=== PATIENT | male | born 1965 | race Caucasian/White ===

== ENCOUNTER 2024-08-05 10:17 | Outpatient (CLI) | payer MEDICAID ==
--- NOTE | 2024-08-05 16:14 | RADIOLOGY REPORT ---
EXAM: MR MRI UPPER EXTREMITY RIGHT; DATE: 08/05/2024 10:37 AM HISTORY: UNSPECIFIED OSTEOARTHRITIS, UNSPECIFIED SITE COMPARISON: None TECHNIQUE: Multiplanar, multisequence MRI was performed. FINDINGS: Extensor tendons: Mild increased signal in the extensor carpi ulnaris tendon. There is minimal fluid distention of the 2nd and 4th tendon sheaths. Flexor tendons: Unremarkable. Intercarpal ligaments: Thickening and signal alteration of volar and dorsal scapholunate ligaments re flecting chronic partial tear/chronic sprain. Triangular fibrocartilage: Grossly unremarkable. Carpal tunnel: Unremarkable. Median nerve is normal. Guyon's canal: Unremarkable. Ulnar nerve is normal. Ulnar variance: Neutral. Bones/joints: Several subcentimeter intraosseous cysts are seen most likely degenerative in nature. N arrowing of lunocapitate joint with [id number] appearance and subchondral sclerosis noted. Mild michelle rowing of triscaphe and 1st carpometacarpal joint with mild marginal osteophytosis. Small radiocarpal joint effusion noted. Musculature: Thenar, hypothenar and intrinsic muscles of the hand are within normal limits. Other: Subcentimeter ganglion cyst is seen on the volar - radial aspect of the wrist. Subcentimeter g anglion cyst is seen adjacent to the pisiform. IMPRESSION: 1. Polyarticular osteoarthritis. An element of inflammatory arthritis can not be ruled out. Recommen d clinical and biochemical correlation. 2. Chronic sprain/partial tear of scapholunate ligament. 3. Mild extensor carpi ulnaris tendinosis with no evidence for tendon tear. 4. Mild 2nd and 4th compartments tenosynovitis without definite tendinosis or tendon tear.
== END 2024-08-05 23:59 | disposition home or self-care (01) ==
LOC: MRI02 10:17
PROVIDERS: ATTEND Registered Nurse
DX: M13.0 Polyarthritis, unspecified (principal); M25.431 Effusion, right wrist; M67.441 Ganglion, right hand; M65.841 Other synovitis and tenosynovitis, right hand
CPT/HCPCS: 73221